=== PATIENT | female | born 1970 | race Caucasian/White ===

== ENCOUNTER 2016-11-06 10:43 | Inpatient (IN) ==
[2016-11-06] MEDS ORDERED: ZOFRAN IV ONE (11:09)
[2016-11-06] MEDS ORDERED: NS 1,000 ML IV ONE ×2 (11:09→16:35)
[2016-11-06 11:23] LABS: MANUAL DIFF NEEDED? NO
[2016-11-06 11:25] LABS: BASO% 0.8 % (0.0-0.8); HEMATOCRIT 39.1 % (37.0-47.0); HEMOGLOBIN 13.2 g/dL (12.0-16.0); IMM GRAN# 0.01 X1000 (0.0-0.04); IMM GRAN% 0.2 % (0.0-0.5); LYMPH# 0.88 X1000 (1.2-3.4); LYMPH% 17.8 % (20.5-51.1); MCHC 33.8 g/dL (33-37); MONO# 0.49 X1000 (0.11-0.59); MONO% 9.9 % (1.7-9.3); MPV 9.6 FL (7.4-10.4); NEUT% 71.3 % (42.2-75.2); PLT 185 X1000 (130-400); RBC 4.71 XMIL (4.2-5.4)
[2016-11-06 11:56] LABS: AGAP 14; ALBUMIN 3.8 g/dL (3.5-5.0); ALKALINE PHOSPHATASE 101 U/L (32-104); BUN 6 mg/dL (8-22); CALCIUM 8.2 mg/dL (8.8-10.2); CHLORIDE 92 mmol/L (98-107); CK PROFILE 118 U/L (24-173); COSMO 254; GOT 161 U/L (10-30); GPT 155 U/L (10-36); POTASSIUM 4.1 mmol/L (3.5-5.1); SODIUM 128 mmol/L (136-145); TCO2 22 mmol/L (25-35); TOTAL PROTEIN 6.3 g/dL (6.3-8.3)
[2016-11-06 12:18] LABS: INR 0.96 (0.86-1.15); PROTIME 13.1 Seconds (12.1-15.5)
[2016-11-06 12:19] LABS: PTT PL 35.8 Seconds (22.6-43.9)
--- NOTE | 2016-11-06 12:22 | Diag Imaging Result Doc PS360 ---
EXAM: HEAD W/O CONTRAST - 11/06/2016 HISTORY: Fever, [place] TECHNIQUE: Without contrast. Dose reduction protocol. COMPARISON: None. FINDINGS: There is no evidence of hemorrhage, mass effect, midline shift, or hydrocephalus. There is no evidence of infarct, although acute infarcts may not be immediately visible. Visualized portions of paranasal sinuses and mastoid air cells appear clear. IMPRESSION: No visible acute intracranial abnormality. No hemorrhage or mass effect. Electronically signed by Alfredo Dash 11/06/2016 12:20 PM
[2016-11-06 12:26] LABS: UR AMPHETAMINES QUAL NONE DETECTED (NONE DETECT); UR BARBITUATES QUAL NONE DETECTED (NONE DETECT); UR BENZODIAZEPIN QUAL NONE DETECTED (NONE DETECT); UR CANNABINOIDS QUAL NONE DETECTED (NONE DETECT); UR COCAINE QUAL NONE DETECTED (NONE DETECT); UR MDMA QUAL NONE DETECTED (NONE DETECT); UR METHADONE QUAL NONE DETECTED (NONE DETECT); UR METHAMPHETAMINE QUAL NONE DETECTED (NONE DETECT); UR OPIATES QUAL NONE DETECTED (NONE DETECT); UR OXYCODONE QUAL NONE DETECTED (NONE DETECT); UR PCP QUAL NONE DETECTED (NONE DETECT); UR TCA QUAL NONE DETECTED (NONE DETECT)
[2016-11-06 12:37] LABS: BILIRUBIN URINE NEGATIVE (NEGATIVE); BLOOD URINE 1+ (NEGATIVE); CLARITY CLEAR (CLEAR); COLOR YELLOW; GLUCOSE URINE NEGATIVE (NEGATIVE); LEUKOCYTES URINE NEGATIVE (NEGATIVE); NITRITE URINE NEGATIVE (NEGATIVE); PROTEIN URINE NEGATIVE (NEGATIVE); UROBILINOGEN URINE NORMAL
--- NOTE | 2016-11-06 12:37 | Diag Imaging Result Doc PS360 ---
EXAM: CHEST-1 VIEW - 11/06/2016 HISTORY: Fever TECHNIQUE: One view chest COMPARISON: None. FINDINGS: Heart size is normal. There is mild prominence of infrahilar markings on the right. There is no consolidation, pleural effusion, or pneumothorax identified. IMPRESSION: Mild prominence of right infrahilar markings. No consolidation. Electronically signed by Alfredo Dash 11/06/2016 12:35 PM
[2016-11-06 12:43] LABS: URINE CULTURE PL NEEDED? YES; URINE EPITHELIAL CELLS >10 /HPF (<10); URINE RBC <10 /HPF (<10); URINE SOURCE CLEAN CATCH; URINE WBC <10 /HPF (<10)
[2016-11-06] MEDS ORDERED: ZOSYN 3.375 GM/NS 3.375 GM/50 ML IVPB IV ONE (12:43)
[2016-11-06] MEDS ORDERED: VANCOMYCIN 1 GM/NS 1 GM/250 ML IVPB IV ONE ×2 (12:43→17:00)
[2016-11-06] MEDS ORDERED: D5 NS 500 ML IV ONE (12:43)
[2016-11-06] MEDS ORDERED: TYLENOL PO ONE (14:01)
[2016-11-06] MEDS ORDERED: D5 NS 1,000 ML ONE (14:03)
--- NOTE | 2016-11-06 14:44 | PROVIDER DOCUMENTATION ---
This chart was entered by Sachi Alcazar Scribe, acting as scribe for Rafita Good MD. HPI-General Adult - General Chief Complaint: Fever Stated Complaint: FEVER Time Seen by Provider: 11/06/16 11:00 Source: patient Allergies/Adverse Reactions: Patient Allergies Allergy/AdvReac Type Severity Reaction Status Date / Time doxycycline Allergy VOMITING Verified 11/06/16 10:59 nitrofurantoin Allergy VOMITING Verified 11/06/16 10:59 [From Macrodantin] Home Medications: Home Medication List Medication Instructions Recorded Confirmed Last Taken Type Amoxicillin/Potassium Clav 1 dose BID 11/06/16 11/06/16 11/05/16 History [Augmentin 875-125 Tablet] - History of Present Illness -Gen Adult Nature of Presenting Problems: 46 yo F presents to the ER with complaint of n/v, fever, and generalized pain/ weakness after an unknown insect bite to R elbow x8 days ago. Pt had a tick removed from her R knee x3 weeks ago, states her PCP, Dr. Trinh, kenia a CBC and Lymes disease test x4 days ago. Is currently taking Bactrim and Augmentin. States last night her fever was 102.7. Complains of [place], generalized tenderness , fever, [place], neck pain, muscle aches. Pt states the insect bite area looks better. Location of Pain/Injury: reports: upper extremity (R elbow) Quality of Pain: reports: sharp Onset/Duration: reports: other (8 days ago) Timing: reports: still present, getting worse Associated Symptoms: reports: back/neck pain, fever/chills, headaches, loss of appetite, muscle aches, nausea, vomiting, weakness. denies: cough Review of Systems - Adult - REVIEW OF SYSTEMS - ADULT Constitutional: reports: chills, fever Eyes: reports: no symptoms reported Ears, Nose, Mouth & Throat: reports: no symptoms reported Cardiovascular: denies: chest pain, palpitations Respiratory: denies: cough, shortness of breath Gastrointestinal: reports: nausea, vomiting. denies: abdominal pain, diarrhea Genitourinary: reports: no symptoms reported Musculoskeletal: reports: joint pain, muscle aches, neck pain Integumentary: denies: itching, rash Neurological: reports: headache/migraines. denies: dizziness/vertigo Psychiatric: reports: no symptoms reported Endocrine: reports: no symptoms reported Hematologic/Lymphatic: reports: no symptoms reported Allergic/Immunologic: reports: no symptoms reported All Other Systems: Reviewed and Negative Past History - Adult - PAST MEDICAL HISTORY-ADULT Review of Records: reports: Nursing Assessment Review, Medications Reviewed - PRIOR SURGERIES/PROCEDURES Surgical/Procedure History: reports: cholecystectomy, hysterectomy - IMMUNIZATION STATUS Childhood Immunizations: See Nurse Assessment Flu Vaccine: See Nurse Assessment Physical Exam-General - PHYSICAL EXAM-ADULT Initial Vital Signs Reviewed: Yes - CONSTITUTIONAL General Appearance: alert, moderate distress, anxious - EYES Eyes: PERRL/EOMI, pink conjunctivae - HEAD, EARS, NOSE, MOUTH & THROAT HENMT: normocephalic/atraumatic, normal ENT inspection - NECK Neck: supple, normal inspection - RESPIRATORY Respiratory: no respiratory distress, no accessory muscle use - CARDIOVASCULAR Cardiovascular: normal peripheral pulses, regular rate, rhythm - GASTROINTESTINAL (ABDOMEN) Abdominal Exam: normal bowel sounds, non tender, soft - LYMPHATIC Lymphatic: no adenopathy - MUSCULOSKELETAL Back Exam: no CVA tenderness, no vertebral tenderness Extremity: normal gait, normal inspection - SKIN Integumentary: warm/dry, erythema (R upper inner arm and elbow), tenderness (R upper, inner arm and elbow), other (cellulitis to R posterior elbow, with scab to middle, spreading to R upper inner arm, multiple bite looking areas to upper arms) - NEUROLOGIC Neurologic: grossly normal, no motor/sensory deficits - PSYCHIATRIC Psych/Mental Status: normal mood/affect, normal thought content, normal thought process, oriented x 3 Progress - PLAN OF CARE/RESULTS Progress/Plan/Lab Results: Vital Signs - 8 hr 11/06/16 10:53 Temperature 101 F H Pulse Rate 122 H Respiratory Rate 18 Blood Pressure 136/83 O2 Sat by Pulse Oximetry 100 Orders Category Date Time Status Cardiac Monitoring DIRECTED Care 11/06/16 11:09 Ordered Saline Loc NOW Care 11/06/16 11:09 Ordered CHEST-PORTABLE [RAD] Stat Exams 11/06/16 11:09 Ordered HEAD W/O CONTRAST [CT] Stat Exams 11/06/16 11:10 Ordered BLOOD CULTURE [BLDCUL] Stat Lab 11/06/16 11:09 Ordered CBC WITH ELECTRONIC DIFF [HEME] Stat Lab 11/06/16 11:09 Ordered CK PROFILE [SP CHEM] Stat Lab 11/06/16 11:09 Ordered COMPREHENSIVE METABOLIC PANEL [CHEM] Stat Lab 11/06/16 11:09 Ordered LACTATE, PLASMA [CHEM] Stat Lab 11/06/16 11:09 Ordered TEST-URINE [PREG] Stat Lab 11/06/16 11:09 Uncollected PROTIME WITH INR PL [COAG] Stat Lab 11/06/16 11:[address] [COAG] Stat Lab 11/06/16 11:09 Ordered TROPONIN T Stat Lab 11/06/16 11:[address] W/POSS RFLX CULT [URINALYSIS] Stat Lab 11/06/16 11:09 Uncollected URINE DRUG SCREEN PL Stat Lab 11/06/16 11:09 Uncollected Ns 1000 ml IV Bolus X1 Med 11/06/16 11:09 Ordered 0.9% Sodium Chloride Inj [Ns] 1,000 ml IV 999 mls/hr Ondansetron [Zofran] Med 11/06/16 11:09 Once 8 mg IV NOW ONE Pulse Oximetry Stat Oth 11/06/16 11:09 Active Result Diagrams: 11/06/16 11:15 11/06/16 11:15 - XRAY 1 XRAY Study: Chest Impression: Abnormal (mild prominence of R infrahilar markings, no consolidation , per radiologist) - CT/MRI 1 CT Study: Head Impression: Normal (negative, per radiologist) - CONSULTS/PCP/HOSPITALIST Notification #1 *Consult/PCP/Hospitalist*: Dr. Santiago Time Discussed: 14:44 Consult Disposition: Admit Departure - Departure Date of Disposition Decision: 11/06/16 Time of Disposition Decision: 14:43 DIAGNOSIS: Fever Qualifiers: Fever type: unspecified Qualified Code(s): R50.9 - Fever, unspecified Cellulitis Qualifiers: Site of cellulitis: extremity Site of cellulitis of extremity: upper extremity Laterality: right Qualified Code(s): L03.113 - Cellulitis of right upper limb Disposition: ADMITTED INPATIENT 09 Certified Medical Emergency: Emergent Condition: Stable Referrals and Follow-Ups: None,PCP [Primary Care Provider] - - Critical Care Note This patient required my direct & personal management of CC.: No This chart was documented by the indicated scribe, (Sachi Alcazar Scribe) and accurately reflects the services I performed and decisions made by me, Rafita Good MD, as attested by the provider's signature.
[2016-11-06] MEDS ORDERED: VANCOMYCIN IV PER PHARMACY MISC SCH (16:35)
[2016-11-06] MEDS ORDERED: ZOFRAN IV PRN (16:35)
--- NOTE | 2016-11-06 16:36 | HISTORY AND PHYSICAL ---
PRIMARY CARE PHYSICIAN: Dr. Trinh. CHIEF COMPLAINT: An unknown bite to her right elbow 8 days ago, has been on antibiotics since, and continues to have fever with no improvement in that area to her right elbow. HISTORY OF PRESENTING ILLNESS: This is a 46-year-old female who presents to [facility] ER with complaints of an unknown bite to her right elbow approximately 8 days ago. She states that she saw her primary care physician a couple of days after the bite occurred and he placed her on Bactrim and ibuprofen. She has been alternating ibuprofen and Tylenol with low-grade temperatures still occurring. She saw her primary care physician again this past Saturday and she had her antibiotic changed to Augmentin. She states that she has begun having headaches, neck pain, muscle aches and joint aches. States she had a temperature of 102.7 degrees last night. She also notes that approximately 3 weeks ago she had a tick removed from her right knee. Her primary care did a blood test for Lyme disease, which she states that he said, today actually, was negative. When she arrived to the emergency room she was noted to have a temperature of 101 degrees, with a heart rate of 122. She was mildly orthostatics with a lying blood pressure of 132/82, sitting 128/87, and standing 113/85. Her labs showed a normal white blood cell count. Her sodium was 128. Her liver enzymes are elevated with an AST of 161, ALT 155, and I am thinking that is most likely related to the fact that she has been taking ibuprofen and Tylenol routinely around the clock for the past several days. She is also noted to have an area to her right elbow that is erythematous, warm to touch, tender. She has a small scab to the middle of her elbow, and then she has some small, red, raised areas to both arms which she says is actually improving and had been present for the past couple of days also. So, she will be admitted for further evaluation and treatment. PAST MEDICAL HISTORY: None. PAST SURGICAL HISTORY: Cholecystectomy and hysterectomy. FAMILY HISTORY: Noncontributory. SOCIAL HISTORY: Currently lives with family. Denies any tobacco, alcohol, or illicit drug use. ALLERGIES: Macrodantin. HOME MEDICATIONS: She only was taking her Augmentin 875/125 p.o. b.i.d., and that will be held at this time. DIAGNOSTIC DATA: Laboratory data showed a white blood cell count of 4.93, a hemoglobin of 13.2, hematocrit 39.1, platelets 185,000. PT and INR of 13.1 and 0.96. Sodium of 128 , potassium 4.1, chloride 92, CO2 22, BUN of 6, creatinine 0.7, glucose 90. Total bilirubin is 0.40. AST of 165,ALT 155, alkaline phosphatase 101. Creatine kinase of 118. Troponin less than 0.010, with a plasma lactate of 1.1. Urinalysis is negative. Urine test negative. Urine drug screen was negative. CT of the head showed no visible acute intracranial abnormality, no hemorrhage or mass effect. Chest x-ray showed mild prominence of right infrahilar markings but no consolidation. REVIEW OF SYSTEMS: She was positive for a subjective fever, chills, headache, muscle aches, neck pain, pain to her right elbow, and some nausea, vomiting. She denied any chest pain, coughing, shortness of breath, constipation, diarrhea, or burning or hurting with urination. PHYSICAL EXAMINATION: On arrival, she had a temperature of 101 degrees, with a pulse of 122, respiration 18, blood pressure 136/83, saturating 100% on room air. GENERAL: This is a 46-year-old female who is lying in the bed, and answers all questions appropriately. HEENT: Normocephalic and atraumatic. Pupils are equal, round, and reactive to light. The extraocular movements are intact. Oropharynx and nares are clear. NECK: Supple. LUNGS: Clear to auscultation bilaterally with equal lung expansion and chest wall movement. HEART: With regular rate and rhythm. No murmurs, rubs, or gallops. ABDOMEN: Soft, nontender, nondistended. Bowel sounds are present x4 quadrants. EXTREMITIES: Patient is noted to have erythema, tenderness, warmth to touch to her right elbow with scattered, small, nonraised, red areas to her bilateral upper arms. Otherwise no clubbing, cyanosis, or edema. NEUROLOGICAL: The cranial nerves 2-12 appear grossly intact. ASSESSMENT: 1. Right elbow cellulitis. 2. Hyponatremia. 3. Some mild orthostatic hypotension. 4. Elevated liver function tests. PLAN: She will be admitted to the medical unit at [facility] and placed on telemetry. We will check orthostatic blood pressures q.12 hours. Blood cultures x2 and a urine culture are pending. We will place on normal saline at 75 mL an hour, Tylenol 650 p.o. q.4 hours p.r.n. , Zofran 4 mg IV q.4 hours p.r.n., vancomycin per pharmacy protocol and she did receive a first dose in the emergency room. We will recheck a CBC and a CMP in the a.m. Placed on a regular diet. Dictated by MING Kulkarni for Nehemiah Lord MD cc: MING Kulkarni MD Dr. Hall MTDD
[2016-11-06] MEDS ORDERED: NORCO-10 PO PRN ×2 (18:59→20:18)
[2016-11-06] MEDS ORDERED: NS 250 ML ONE (21:25)
[2016-11-06] MEDS: DOXYCYCLINE 100 MG in NS 250 ML IV SCH (21:32)
[2016-11-06] MEDS: TYLENOL PO PRN (21:38)
[2016-11-07] MEDS: TYLENOL PO PRN ×2 (04:05→08:18)
[2016-11-07 06:56] LABS: EOS# 0.01 X1000 (0.0-0.7); EOS% 0.2 % (0.0-10.0); HEMATOCRIT 32.5 % (37.0-47.0); HEMOGLOBIN 10.3 g/dL (12.0-16.0); IMM GRAN# 0.02 X1000 (0.0-0.04); IMM GRAN% 0.3 % (0.0-0.5); LYMPH# 1.94 X1000 (1.2-3.4); MANUAL DIFF NEEDED? YES; MCH 26.9 PG (27-31); MCHC 31.7 g/dL (33-37); MCV 84.9 FL (81-99); MONO# 0.88 X1000 (0.11-0.59); MONO% 14.1 % (1.7-9.3); MPV 9.8 FL (7.4-10.4); NEUT% 53.4 % (42.2-75.2); PLT 187 X1000 (130-400); RBC 3.83 XMIL (4.2-5.4)
[2016-11-07 07:06] LABS: AGAP 10; ALKALINE PHOSPHATASE 79 U/L (32-104); BUN 5 mg/dL (8-22); CALCIUM 7.7 mg/dL (8.8-10.2); CHLORIDE 100 mmol/L (98-107); COSMO 264; GOT 109 U/L (10-30); GPT 122 U/L (10-36); POTASSIUM 3.3 mmol/L (3.5-5.1); SODIUM 133 mmol/L (136-145); TCO2 23 mmol/L (25-35); TOTAL PROTEIN 5.5 g/dL (6.3-8.3)
[2016-11-07 07:42] LABS: BASO 2 % (0-1); EOS 1 % (1-10); LYMPHS 27 % (21-51); MONO 6 % (1-9)
[2016-11-07] MEDS ORDERED: KLOR-CON PO ONE (08:22)
--- NOTE | 2016-11-07 08:47 | PROGRESS NOTE ---
DATE: 11/07/2016 SUBJECTIVE: The patient notes that her right elbow area is feeling much better. Much less erythema, much less pain, less swelling. Notes that she is also having less dizziness and fatigue type symptoms. Notes that she tolerated the IV doxycycline without any issues. PHYSICAL: Vital Signs: Temperature 97, T-max 98.8. Pulse 18, respiratory rate 106/67, saturation 98% on room air. General: The patient is awake and alert. She is currently in no respiratory distress. Speech is regular. Memory is intact. Neck: Supple. CV: Regular rate. Chest: Relatively clear. Abdomen: Soft. Extremities: Moves all extremities. Neurologic: No focal changes. Skin: Warm and dry. No rashes. ASSESSMENT: 1. She is noted to have much less pain and swelling over her right upper extremity. 2. Hyponatremia, resolved. 3. Hyponatremia, improving. 4. Hypokalemia, stable. 5. Hypocalcemia, will replace orally. PLAN: Will continue patient on IV vancomycin and IV doxycycline. Her allergy to doxycycline was simply nausea intolerance to the p.o. medication. She is much improved. Hopefully home in the next 1-2 days. cc: Nehemiah Lord MD
[2016-11-07] MEDS: CALTRATE 600 PO SCH ×2 (09:40→20:28)
[2016-11-07] MEDS: DOXYCYCLINE 100 MG in NS 250 ML IV SCH ×2 (10:25→20:28)
[2016-11-07 12:00] LABS: LYME DISEASE SCREEN SEE COMMENTS
[2016-11-07] MEDS: VANCOMYCIN 1,600 MG in NS 250 ML IV SCH (13:14)
[2016-11-07] MEDS ORDERED: MOTRIN PO PRN ×2 (15:29→16:27)
[2016-11-08] MEDS: VANCOMYCIN 1,600 MG in NS 250 ML IV SCH (03:53)
[2016-11-08 08:23] VITALS: BP 121/78
[2016-11-08] MEDS ORDERED: CLEOCIN PO SCH (09:00)
[2016-11-08] MEDS: CALTRATE 600 PO SCH (09:20)
--- NOTE | 2016-11-08 15:52 | DISCHARGE SUMMARY ---
ADMISSION DATE: 11/06/2016 DISCHARGE DATE: 11/08/2016 PRIMARY CARE PHYSICIAN: Dr. Trinh. ADMISSION DIAGNOSES: 1. Right elbow cellulitis. 2. Hyponatremia. 3. Mild orthostatic hypotension. 4. Elevated liver function tests. DISCHARGE DIAGNOSES: 1. Right elbow cellulitis improved. 2. Hyponatremia resolved. 3. Mild orthostatic hypotension resolved. 4. Elevated LFTs improved. SUMMARY OF FINDINGS: This is a 46-year-old female who presented to the ER with complaints of an unknown bite to her right elbow approximately 8 days ago. She had seen her primary care physician and had been placed on Bactrim and ibuprofen. She continued to have some low grade fevers and saw her primary care physician again this past Saturday where he changed her antibiotic to Augmentin. She states she began having headaches, neck pain, muscle pain, and joint aches. She states she had a temperature of 102 degrees on the night prior to arrival. It was noted that she had a tick removed from her right knee approximately 3 weeks ago. We did a Lyme disease test that was negative and a Rickettsia for spotted fever that was also negative. She was placed on IV antibiotics, IV hydration. She has had much improvement with being afebrile for greater than 24 hours now. Her white blood cell count has remained within normal limits. Her sodium has improved. Her AST and ALT have decreased. It was most likely elevated due to her taking so much Tylenol and ibuprofen alternating for the headache and fever. It is now felt that she can safely be discharged home today. She will be given a prescription for clindamycin 300 mg 1 p.o. t.i.d. #21 with no refills. She is to follow up with her primary care physician in 1-2 weeks and she verbalizes understanding. DISCHARGE TIME: 35 minutes. Dictated by MING Kulkarni for Nehemiah Lord MD cc: MING Patel MD
== END 2016-11-08 12:21 | disposition home or self-care (01) ==
LOC: P.ED 10:43 → P.MEDSURG 10:44
PROVIDERS: ATTEND Family Medicine

== ENCOUNTER 2019-07-01 21:41 | Observation (INO) ==
[2019-07-01 22:31] LABS: BASO# 0.04 X1000 (0.0-0.2); BASO% 0.5 % (0.0-0.8); EOS# 0.12 X1000 (0.0-0.7); EOS% 1.6 % (0.0-10.0); HEMATOCRIT 41.7 % (37.0-47.0); HEMOGLOBIN 13.2 g/dL (12.0-16.0); IMM GRAN# 0.01 X1000 (0.0-0.04); IMM GRAN% 0.1 % (0.0-0.5); LYMPH% 37.4 % (20.5-51.1); MCH 27.3 PG (27-31); MCHC 31.7 g/dL (33-37); MCV 86.2 FL (81-99); MONO# 0.84 X1000 (0.11-0.59); MONO% 11.2 % (1.7-9.3); MPV 9.5 FL (7.4-10.4); NEUT# 3.67 X1000 (1.4-6.5); NEUT% 49.2 % (42.2-75.2); PLT 340 X1000 (130-400); RBC 4.84 XMIL (4.2-5.4); RDW 13.4 % (11.5-14.5); WBC 7.48 X1000 (4.8-10.8)
[2019-07-01 22:46] LABS: AGAP 12; ALBUMIN 4.3 g/dL (3.5-5.0); ALKALINE PHOSPHATASE 87 U/L (32-104); BUN 13 mg/dL (8-22); CALCIUM 9.4 mg/dL (8.8-10.2); CHLORIDE 103 mmol/L (98-107); COSMO 282; CREATININE 0.8 mg/dL (0.5-0.9); ESTIMATED GFR > 60; GLUCOSE 105 mg/dL (70-104); GOT 18 U/L (10-30); GPT 20 U/L (10-36); POTASSIUM 3.9 mmol/L (3.5-5.1); SODIUM 141 mmol/L (136-145); TCO2 26 mmol/L (25-35); TOTAL PROTEIN 7.3 g/dL (6.3-8.3)
[2019-07-01 23:02] LABS: INR 0.82; PROTIME 11.7 Seconds (11.0-16.0)
[2019-07-01 23:03] LABS: PTT 28.3 Seconds (22.3-41.8)
--- NOTE | 2019-07-02 00:01 | PROVIDER DOCUMENTATION ---
HPI-General Adult - General Chief Complaint: Numbness Stated Complaint: NUMBNESS RT SIDE, FELL Time Seen by Provider: 07/01/19 22:05 Source: patient Allergies/Adverse Reactions: Patient Allergies Allergy/AdvReac Type Severity Reaction Status Date / Time doxycycline Allergy VOMITING Verified 07/01/19 21:56 nitrofurantoin Allergy VOMITING Verified 07/01/19 21:56 [From Macrodantin] Home Medications: Home Medication List Medication Instructions Recorded Confirmed Last Taken Type Famotidine [Acid Controller] 1 tab PO DAILY 07/01/19 07/02/19 06/30/19 09:00 History - History of Present Illness -Gen Adult Nature of Presenting Problems: Pt states standing in her kitchen at home when she suddenly became dizzy with simultaneous R sided tingling and numbness/weakness to face, mouth, arm and leg. She subsequently went down to the floor. The symptoms lasted for approximately 45 min. She contacted a telemedical service who advised her to come to the ED. No preceding symptoms, no headache, vomiting or other associated symptoms. Review of Systems - Adult - REVIEW OF SYSTEMS - ADULT Constitutional: denies: chills, fever, fatique, night sweats, weight gain, weight loss Eyes: reports: no symptoms reported Ears, Nose, Mouth & Throat: reports: no symptoms reported Cardiovascular: reports: no symptoms reported Respiratory: reports: no symptoms reported Gastrointestinal: reports: no symptoms reported Genitourinary: reports: no symptoms reported Musculoskeletal: reports: no symptoms reported Integumentary: reports: no symptoms reported Neurological: reports: see HPI Psychiatric: reports: no symptoms reported Endocrine: reports: no symptoms reported Hematologic/Lymphatic: reports: no symptoms reported Allergic/Immunologic: reports: no symptoms reported All Other Systems: Reviewed and Negative Past History - Adult - PAST MEDICAL HISTORY-ADULT Review of Records: reports: Nursing Assessment Review, Social history reviewed & non-contributory. - PRIOR SURGERIES/PROCEDURES Surgical/Procedure History: reports: cholecystectomy, hysterectomy - IMMUNIZATION STATUS Childhood Immunizations: See Nurse Assessment Flu Vaccine: See Nurse Assessment Physical Exam-General - PHYSICAL EXAM-ADULT Initial Vital Signs Reviewed: Yes - CONSTITUTIONAL General Appearance: appears well, alert, no apparent distress - EYES Eyes: PERRL/EOMI, pink conjunctivae - HEAD, EARS, NOSE, MOUTH & THROAT HENMT: normocephalic/atraumatic, moist mucous membranes, normal ENT inspection - NECK Neck: non-tender, full range of motion, supple - RESPIRATORY Respiratory: chest non-tender, lungs clear, normal breath sounds - CARDIOVASCULAR Cardiovascular: regular rate, rhythm, no edema, no gallop, no JVD, no murmur - GASTROINTESTINAL (ABDOMEN) Abdominal Exam: normal bowel sounds, non tender, soft. negative: guarding - LYMPHATIC Lymphatic: no adenopathy - MUSCULOSKELETAL Back Exam: normal inspection, no CVA tenderness Extremity: normal range of motion, non-tender, normal inspection, no pedal edema , no calf tenderness, normal capillary refill - SKIN Integumentary: normal color, normal turgor, warm/dry. negative: cyanosis, diaphoresis, embolic lesions, jaundice - NEUROLOGIC Neurologic: other (clear, appropriate speech. No dydiadadochokinesia. Sensation intact, but she states slightly less on R compared to L. Normal side to side movement of tongue.). negative: facial droop, focal weakness, motor weakness, sensory deficit Progress - PLAN OF CARE/RESULTS Progress/Plan/Lab Results: Vital Signs - 8 hr 07/01/19 21:53 07/01/19 22:45 07/01/19 23:53 Temperature 98.6 F Pulse Rate 89 79 81 Respiratory Rate 20 20 18 Blood Pressure 158/94 153/94 128/86 O2 Sat by Pulse Oximetry 99 99 98 Laboratory Results - last 24 hr 07/01/19 07/01/19 07/01/19 22:10 22:10 22:19 WBC 7.48 RBC 4.84 Hgb 13.2 Hct 41.7 MCV 86.2 MCH 27.3 MCHC 31.7 L RDW Std Deviation 13.4 Plt Count 340 MPV 9.5 Immature Gran % (Auto) 0.1 Neut % (Auto) 49.2 Lymph % (Auto) 37.4 [place] % (Auto) 11.2 H Eos % (Auto) 1.6 Baso % (Auto) 0.5 Immature Gran # (Auto) 0.01 Neut # (Auto) 3.67 Lymph # (Auto) 2.80 [place] # (Auto) 0.84 H Eos # (Auto) 0.12 Baso # (Auto) 0.04 PT 11.7 INR 0.82 PTT (Actin FS) 28.3 Sodium 141 Potassium 3.9 Chloride 103 Carbon Dioxide 26 Anion Gap 12 BUN 13 Creatinine 0.8 Estimated GFR/1.73 m2 > 60 BUN/Creatinine Ratio 16 Glucose 105 H Calculated Osmolality 282 Calcium 9.4 Total Bilirubin 0.20 AST 18 ALT 20 Alkaline Phosphatase 87 Total Protein 7.3 Albumin 4.3 Globulin 3.0 Albumin/Globulin Ratio 1.0 Orders Category Date Time Status CT HEAD W/O CONTRAST [CT] Stat Exams 07/01/19 22:14 Taken CTA [CT ANGIOGRAM HEAD/NECK] [CT] Stat Exams 07/01/19 22:55 Taken CBC WITH ELECTRONIC DIFF [HEME] Stat Lab 07/01/19 22:19 Completed COMPREHENSIVE METABOLIC PANEL [CHEM] Stat Lab 07/01/19 22:10 Completed PROTIME WITH INR [COAG] Stat Lab 07/01/19 22:10 Completed PTT [COAG] Stat Lab 07/01/19 22:10 Completed EKG [EKG] Stat Ther 07/01/19 22:14 Ordered NIHSS is 0. Pt states slightly decreased sensation R compared to L but is able to feel touch. I spoke with Dr Venegas at 2355 and he recommended no TPA. She has normal coordination, strength, normal finger-nose and heel to espinosa movements. She states intermittently having the sensation of numbness in her tongue and lips. 0030: Clinically stable under my care. She is ambulating independently and is asymptomatic. CT and CTA head/neck WNL. She was admitted to Dr Lord and will have MRI and echo on the am of 07/02. Initially I spoke with Dr Montoya but after recognizing her to be Dr Lord's primary patient he was admitted to [facility]'s service. Result Diagrams: 07/01/19 22:19 07/01/19 22:10 Departure - Departure Date of Disposition Decision: 07/02/19 Time of Disposition Decision: 00:00 DIAGNOSIS: TIA (transient ischemic attack) Disposition: ADMITTED INPATIENT 09 Certified Medical Emergency: Emergent Condition: Fair - Critical Care Note This patient required my direct & personal management of CC.: Yes Total Time (mins): 35 Critical Care Statement: This patient required my direct personal management to treat or rule out processes, the absence of which, could potentiallly result in sudden, clinically significant life or limb threatening deterioration. Attestation - Physician/ NOA Attestation The physician spent face to face time with patient:: Yes Advanced Practice Provider documentation review:: Supervising physician onsite and consulted in the evaluation and care of this patient. The physician did have a face to face encounter with the patient.
--- NOTE | 2019-07-02 04:16 | EKG Report ---
Test Performed on : 07/01/2019 10:33:53 PM Test Reason : stroke symptoms Blood Pressure : / mmHG Vent. Rate : 090 BPM Atrial Rate : 090 BPM P-R Int : 146 ms QRS Dur : 060 ms QT Int : 348 ms P-R-T Axes : 061 014 018 degrees QTc Int : 425 ms Normal sinus rhythm. Low voltage QRS Borderline ECG No previous ECGs available Unconfirmed Result
--- NOTE | 2019-07-02 05:33 | Diag Imaging Result Doc PS360 ---
EXAM: CT HEAD W/O CONTRAST HISTORY: R sided weakness, dizziness. TECHNIQUE: CT head without intravenous contrast COMPARISON: 11/06/2016 FINDINGS: No parenchymal hemorrhage. No epidural or subdural hematoma. No subarachnoid hemorrhage. No mass identified on this noncontrasted exam. No hydrocephalus. No skull fracture. IMPRESSION: No hemorrhage. Negative brain CT without contrast. A preliminary report was given at 10:51 PM 07/01/2019 This exam was performed using automated exposure control, adjustment of mA or kV according to patient size, and/or use of iterative reconstruction technique. Electronically signed by Dimas Magallanes 07/02/2019 5:30 AM
--- NOTE | 2019-07-02 05:49 | Diag Imaging Result Doc PS360 ---
EXAM: CT ANGIOGRAM HEAD/NECK HISTORY: possible stroke TECHNIQUE: 1. CT angiogram neck with intravenous contrast. Arteriogram protocol with MIP images. 2. CT angiogram head with intravenous contrast. Arteriogram protocol with MIP images. COMPARISON: None. FINDINGS: CT angiogram neck: Normal common carotid arteries. No occlusions or stenoses. Normal carotid bulbs. Normal internal carotid arteries. No occlusions or stenoses. No plaque. There is flow within each vertebral artery. No occlusion. CT angiogram head: There is normal flow within each distal internal carotid artery. Normal filling of the anterior and middle cerebral arteries. Normal flow in the basilar artery with filling of the posterior cerebral arteries. No occlusion or stenosis. There is a left-sided posterior communicating artery. This is a normal variant. IMPRESSION: CT angiogram neck: Normal exam CT angiogram head: Normal exam A preliminary report was given at 12:04 AM This exam was performed using automated exposure control, adjustment of mA or kV according to patient size, and/or use of iterative reconstruction technique. Electronically signed by Dimas Magallanes 07/02/2019 5:47 AM
[2019-07-02] MEDS ORDERED: ASPIRIN PO SCH (10:30)
--- NOTE | 2019-07-02 11:00 | HISTORY AND PHYSICAL ---
PRIMARY CARE PHYSICIAN: Dr. Nehemiah Lord. CHIEF COMPLAINT: Dizziness with right-sided tingling, numbness, and weakness to face, mouth, arm, and leg that began approximately 45 minutes prior to arriving, and progressively worsened. HISTORY OF PRESENTING ILLNESS: This is a 49-year-old, female, who presents to [facility] ER after she reports she was in her kitchen, started falling to the right, and was unable to stop herself. She then felt weak on the right side for approximately 45 minutes, and numb in the right side of her face. On arrival, states that she was feeling better, but still had some weakness in the right leg, and numbness on the right side of her mouth. Workup showed a CT of the head with no hemorrhage. Negative brain CT without contrast. Head and neck CT showed an impression of CT angiogram of neck normal, CT angiogram of head normal. She was admitted for further evaluation and treatment. PAST MEDICAL HISTORY: None. PAST SURGICAL HISTORY: Cholecystectomy and hysterectomy. FAMILY HISTORY: Reviewed and noncontributory. SOCIAL HISTORY: She currently lives with family. Denies any tobacco, alcohol, or illicit drug use. ALLERGIES: Doxycycline and nitrofurantoin. HOME MEDICATIONS: She takes famotidine 10 mg p.o. daily. IMAGING AND LABORATORY DATA: Laboratory data showed a white blood cell count of 7.48, hemoglobin 13.2, hematocrit 41.7, platelets 340,000. PT and INR of 11.7 and 0.82. Sodium 141, potassium 3.9, chloride 103, CO2 of 26, BUN of 13, creatinine 0.8, glucose 105. CT of the head showed no hemorrhage, and a negative brain CT without contrast. Head and neck CT were both normal exams. EKG showed normal sinus rhythm at 90. REVIEW OF SYSTEMS: She denied any fever, chills, blurred vision. She did have some dizziness, right-sided tingling and numbness to the face, mouth, arms, and leg. She did go down to the floor, leaning to the right side. Denied any cough, chest pain, shortness of breath, abdominal pain, constipation, diarrhea, burning or hurting with urination. PHYSICAL EXAMINATION: VITAL SIGNS: On arrival, she had a temperature of 98.6 degrees, pulse 89, respirations 20, blood pressure 158/94, saturating 99% on room air. GENERAL: This is a 49-year-old, female, who is sitting up in the bed, answers questions appropriately. HENT: Normocephalic, atraumatic. Normal ENT inspection. Oropharynx and nares are clear. EYES: Pupils are equal, round, and reactive to light and accommodation. Extraocular movements are intact. NECK: Normal inspection. Normal range of motion. LUNGS: Clear to auscultation bilaterally with equal lung expansion and chest wall movement. HEART: Regular rate and rhythm. No murmurs, rubs, or gallops. ABDOMEN: Soft, nontender, nondistended. Bowel sounds are present x4 quadrants. MUSCULOSKELETAL: She had 5/5 strength x4, is ambulating without difficulty at this time. NEUROLOGICAL: Cranial nerves II through XII appear grossly intact. ASSESSMENT: Transient ischemic attack versus cerebrovascular accident. PLAN: She was admitted, placed on telemetry, healthy heart diet. We are doing an MRI of the brain without contrast. Will attempt to get an echocardiogram, but if we are not able to get that, we can do it outpatient, along with carotid ultrasound. Her symptoms appear to have resolved, so after she obtains her MRI, will review those results, and she may possibly be able to go home today. I am going to place her on aspirin 81 mg p.o. daily. Dictated by MING Kulkarni for Nehemiah Lord MD cc: MING Kulkarni MD
--- NOTE | 2019-07-02 14:16 | Diag Imaging Result Doc PS360 ---
EXAM: MRI BRAIN W/O CONTRAST HISTORY: TIA TECHNIQUE: MRI brain without contrast. Axial, sagittal, and coronal images obtained in multiple sequences. COMPARISON: None. FINDINGS: No recent infarct. No microvascular ischemic changes. No mass or midline shift. No hydrocephalus. No epidural or subdural fluid collection. Normal orbits. No sinus opacification. IMPRESSION: No recent infarct. Electronically signed by Dimas Magallanes 07/02/2019 2:14 PM
[2019-07-02 15:18] VITALS: BP 127/83
--- NOTE | 2019-07-02 19:51 | HISTORY AND PHYSICAL ---
ADDENDUM: Patient seen and examined by myself. Full note dictated and discussed with nurse practitioner. Patient presented to the hospital with TIA type symptoms. She had become lightheaded, dizzy, had some facial tingling. We are going to admit her to the hospital and rule out AK, and we will follow. cc: Nehemiah Lord MD
--- NOTE | 2019-07-02 21:58 | DISCHARGE SUMMARY ---
ADMISSION DATE: 07/02/2019 DISCHARGE DATE: 07/02/2019 DISCHARGE DIAGNOSIS: 1. Transient ischemic attack, resolved. 2. Hypertension, resolved. CONSULTATIONS: None. PROCEDURES: None. BRIEF HOSPITAL COURSE: The patient is a 49-year-old female who presented to the hospital, treated in the usual fashion. She did have a CTA of her carotids that was normal. Had an MRI that was normal. Patient declined echo and wanted to wait until she could have it done as an outpatient. Her symptoms have resolved. Therefore, she will be discharged home. cc: Nehemiah Lord MD
--- NOTE | 2019-07-02 22:12 | ECHO REPORT ---
ORDER DATE: 07/02/2019 MEASUREMENTS: 1. Septal thickness 0.7. 2. Left ventricular internal diameter in diastole 5.2. 3. Posterior wall thickness 0.9. 4. Aortic root 2.4. 5. Left atrium 2.7. SUMMARY: 1. Technically difficult study due to limited acoustic window quality. 2. The aortic valve is trileaflet and opens normally on 2-dimensional images. Mitral and tricuspid valves are without evidence of structural abnormality, while pulmonic valve is not well demonstrated. There is mild pulmonic insufficiency. The aortic root is normal in size. 3. Normal left ventricular dimensions demonstrated. The estimated left ventricular ejection fraction appears to be at least 60%. No obvious regional wall motion abnormality can be appreciated. Doppler suggests grade 1 left ventricular diastolic dysfunction. Left atrium, right atrium, right ventricle are normal in size with grossly preserved right ventricular systolic function. 4. No pericardial effusion. 5. Appearance of inferior vena cava suggests normal central venous pressure. cc: MD Amber Mon DO Gregory S. Cheatham, MD
[2019-07-03] MEDS ORDERED: PEPCID PO SCH (09:00)
== END 2019-07-02 17:50 | disposition home or self-care (01) ==
LOC: P.MEDSURG 21:41 → P.ED 21:41
PROVIDERS: ADMIT Family Medicine; ATTEND Family Medicine